=== PATIENT | male | born 1965 | race Caucasian/White ===

== ENCOUNTER → 2025-05-13 15:08 | Outpatient (REF) | payer OTHER, SELFPAY | LOC: DHSLP 15:08 | PROVIDERS: ATTENDING PHYSICIAN Student in an Organized Health Care Education/Training Program; FAMILY PHYSICIAN Family Medicine | DX: G47.33 Obstructive sleep apnea (adult) (pediatric) (principal); G47.61 Periodic limb movement disorder | CPT/HCPCS: 95810 ==